=== PATIENT | female | born 1975 | race African-American/Black ===

== ENCOUNTER 2024-08-30 20:37 | Emergency (ER) | payer OTHER ==
[2024-08-30 20:44] VITALS: BP 115/77; PULSE 95; RESP 18; TEMP 97.9; BMI 34.7
[2024-08-30] MEDS ORDERED: METHOCARBAMOL 500 MG TABLET ONE (21:33)
[2024-08-30] MEDS ORDERED: ACETAMINOPHEN 500 MG TABLET (FP) ONE (21:34)
[2024-08-30] MEDS: ACETAMINOPHEN 500 MG TABLET (FP) PO ONE (21:39)
[2024-08-30] MEDS: METHOCARBAMOL 500 MG TABLET PO ONE (21:39)
== END 2024-08-30 23:15 | disposition home or self-care (01) ==
LOC: JERFT 20:37
DX: S13.4XXA Sprain of ligaments of cervical spine, initial encounter (principal); R51.9 Headache, unspecified; V43.52XA Car driver injured in collision with other type car in traffic accident, initial encounter; Y92.410 Unspecified street and highway as the place of occurrence of the external cause
CPT/HCPCS: 70450-TC; 72125-TC; 99283-25